=== PATIENT | female | born 1965 | race Two or more races ===

== ENCOUNTER 2016-11-04 15:03 | Emergency (ER) | payer SELFPAY ==
[~2016-11-04] VITALS: Ht 157.5 cm; Wt 90.3 kg
[~2016-11-04 15:03] MED LIST: APIDRA SOL100 UNIT/1 SQ; ASPIRIN81 MG ORAL; ATORVASTATIN CA20 MG ORAL; BENAZEPRIL HCL10 MG ORAL; BENAZEPRIL HCL40 MG PO; CIPROFLOXACIN500 M2 ORAL; CYCLOBENZAPRINE10 MG ORAL; FEOSOL325 MG ORAL; GABAPENTIN300 MG ORAL; GEMFIBROZIL600 MG ORAL; HUMALOG100 UNIT/4 SUBQ; HYDROCHLOROTHIA25 MG ORAL; IBUPROFEN600 M1 PO; IBUPROFEN800 M1 PO; KEFLEX500 MG ORAL; LANTUS SOL100 UNIT/1; LEVOFLOXACIN500 MG ORAL; LIPITOR20 MG ORAL; LISINOPRIL40 MG ORAL; LISINOPRIL5 MG ORAL; MEDROXYPROGESTE10 MG; METOPROLOL SUCC25 MG ORAL; TRAMADOL HCL50 MG ORAL; TRICOR145 MG ORAL; lasix
[2016-11-04 15:20] VITALS: BP 131/63
[2016-11-04] MEDS ORDERED: Fluorescein Strips RIGHT EYE ONE (15:30)
[2016-11-04] MEDS ORDERED: Tetracaine 0.5% Opth Soln RIGHT EYE ONE (15:30)
--- NOTE | 2016-11-04 16:13 | Emergency Room Report ---
History of Present Illness General Chief Complaint: Eye Problems Present Illness HPI 51-year-old female presents emergency department complaining of progressive right-sided eye pain which is now 10 out of 10 in severity since last night. Patient reports photophobia, erythema, increased lacrimation. Patient denies trauma to the eye or appreciable incident where foreign body may have gone into her eye. Patient states she has history of diabetes and sees regional coordinator regularly her last visit was one month ago. Patient states she has a history of intermittent floaters patient denies floaters at this time. Patient denies loss of vision. Patient states she has had conjunctivitis in the past and this feels similar. Patient denies recent upper respiratory illness, rhinorrhea, nasal congestion. Denies CP, Palpitations, LOC, AMS, dizziness, Changes in Vision, Sensation, paresthesias, or a sudden severe headache. Allergies: Coded Allergies: MORPHINE (Verified Allergy, Severe, Hives, 05/04/13) Patient History Past Medical History: see triage record Past Surgical History: none Pertinent Family History: none Last Menstrual Period: 10/24/2016 Now: No : 3 Para: 3 Reviewed Nursing Documentation: PMH: Agreed, PSxH: Agreed Nursing Documentation-PMH Hx Cardiac Problems: Yes - Heart surgery 2002 Hx Hypertension: Yes Hx Pacemaker: No Hx Asthma: No Hx COPD: No Hx Diabetes: Yes Hx Cancer: No Hx Gastrointestinal Problems: No Hx Dialysis: No Hx Neurological Problems: No Hx Cerebrovascular Accident: No Hx Seizures: No Hx Numbness: Yes - left arm Review of Systems All Other Systems: negative except mentioned in HPI Physical Exam Vital Signs Date Time Temp Pulse Resp B/P Pulse Ox O2 Delivery O2 Flow Rate FiO2 11/04/16 15:10 97.9 79 16 131/63 99 Room Air Sp02 EP Interpretation: reviewed, normal General Appearance: no apparent distress, alert, GCS 15, non-toxic Head: normocephalic, atraumatic Eyes: right eye Scleral Injection, right eye fluoroscene uptake - increased uptake see MDM section, bilateral eye EOMI, bilateral eye PERRL, bilateral eye normal inspection, bilateral eye other - TONOPEN Measurements: left eye: 12,16 ,15 Right eye: 16,19,16 ENT: hearing grossly normal, normal pharynx, no angioedema, normal voice Neck: full range of motion, supple/symm/no masses Respiratory: lungs clear, normal breath sounds, speaking full sentences Cardiovascular #1: regular rate, rhythm Musculoskeletal: back normal, gait/station normal, normal range of motion Neurologic: alert, oriented x3, responsive, motor strength/tone normal, sensory intact, speech normal Psychiatric: judgement/insight normal, memory normal, mood/affect normal Skin: normal color, no rash, warm/dry, well hydrated Medical Decision Making PA Attestation Dr. Loomis is my supervising Physician whom patient management has been discussed with. Diagnostic Impression: Primary Impression: Corneal abrasion, right Qualified Codes: S05.01XA - Injury of conjunctiva and corneal abrasion without foreign body, right eye, initial encounter ER Course 51-year-old female presents emergency department complaining of progressive right-sided eye pain which is now 10 out of 10 in severity since last night. Patient reports photophobia, erythema, increased lacrimation. Patient denies trauma to the eye or appreciable incident where foreign body may have gone into her eye. Patient states she has history of diabetes and sees regional coordinator regularly her last visit was one month ago. Patient states she has a history of intermittent floaters patient denies floaters at this time. Patient denies loss of vision. Patient states she has had conjunctivitis in the past and this feels similar. Patient denies recent upper respiratory illness, rhinorrhea, nasal congestion. Denies CP, Palpitations, LOC, AMS, dizziness, Changes in Vision, Sensation, paresthesias, or a sudden severe headache. - Pt denies Contact lens use. Ddx considered but are not limited to: corneal abrasion, acute glaucoma, globe rupture, FB, Corneal Ulcer, conjunctivitis. Iridis Vital signs: are WNL, pt. is afebrile H&PE are most consistent with: conjunctivitis, will r/o abrasion and acute glaucoma. ORDERS: -Tetracaine and Fluorescein Stain of the Right eye: -Increase fluorescein uptake in a horizontal linear fashion in the 12'o clock position of the right eye, there is no involvement of the iris or pupil. Negative Lavon sign. Pt. had positive relief of pain with tetracaine drops. there was negative evidence of Fb, deep ulcer, or rupture. - [place] measurements of the IOP left eye: 12,16,15 Right eye: 16,19,16 ED INTERVENTIONS: none at this time. -d/w pt. importance of follow up within 48hours with ophthalmology. or to return with worsening or new symptoms. DISCHARGE: At this time pt. is stable for d/c to home. Will provide printed patient care instructions, and any necessary prescriptions. Care plan and follow up instructions have been discussed with the patient prior to discharge. . Last Vital Signs Date Time Temp Pulse Resp B/P Pulse Ox O2 Delivery O2 Flow Rate FiO2 11/04/16 15:10 97.9 79 16 131/63 99 Room Air Disposition: HOME, SELF-CARE Condition: Stable Scripts Diclofenac Sodium (Diclofenac Sodium) 5 Ml Drops 1 DROP OP BID for For Pain, #5 ML Prov: Shara Hoffmann 11/04/16 Ofloxacin (OCUFLOX) 5 Ml Drops 3 ML OP BID for 5 Days, #5 ML Prov: Shara Hoffmann 11/04/16 Patient Instructions: Corneal Abrasion, [id number] Additional Instructions: Take medications as directed. Follow up with [facility] within 72 hours Return sooner to ED if new symptoms occur, or current symptoms become worse. - Please note that this Emergency Department Report was dictated using [employer] technician technology software, occasionally this can lead to erroneous entry secondary to interpretation by the dictation equipment. Shara Hoffmann November 04, 2016 16:13
[2016-11-04] MEDS ORDERED: OCUFLOX5 ML OP (16:15)
[2016-11-04] MEDS ORDERED: DICLOFENAC SODIU5 ML OP (16:15)
[2016-11-04 16:40] VITALS: BP 109/71
== END 2016-11-04 16:55 | disposition home or self-care (01) ==
LOC: EMR 15:25
DX: S05.01XA Injury of conjunctiva and corneal abrasion without foreign body, right eye, initial encounter (principal); E11.9 Type 2 diabetes mellitus without complications; I10 Essential (primary) hypertension; X58.XXXA Exposure to other specified factors, initial encounter; Y92.9 Unspecified place or not applicable; Y99.8 Other external cause status
CPT/HCPCS: 99284

== ENCOUNTER 2017-11-21 18:35 | Inpatient (IN) | payer MEDICARE, OTHER ==
[~2017-11-21] VITALS: Ht 157.5 cm; Wt 86.2 kg
[~2017-11-21 18:35] MED LIST changes: +DICLOFENAC SODIU5 ML OP; +OCUFLOX5 ML OP
[2017-11-21] MEDS ORDERED: Ketorolac 30mg Inj IV ONE (19:45)
[2017-11-21] MEDS ORDERED: Isovue-300 100ml vial INJ PRN (19:45)
[2017-11-21 20:20] LABS: EOSINOPHILS % (AUTO) 0.6 % (0.0-3.0); HEMATOCRIT 35.5 % (37.0-47.0); HEMOGLOBIN 10.9 G/DL (12.0-16.0); LYMPHOCYTES % (AUTO) 15.5 % (20.0-45.0); MEAN CORPUSCULAR VOLUME 88 FL (80-99); MONOCYTES % (AUTO) 5.5 % (1.0-10.0); NEUTROPHILS % (AUTO) 77.4 % (45.0-75.0); PLATELET COUNT 303 K/UL (150-450); RED BLOOD COUNT 4.03 M/UL (4.20-5.40); RED CELL DISTRIBUTION WIDTH 15.8 % (11.6-14.8)
[2017-11-21 20:33] LABS: ANION GAP 10 mmol/L (5-15); BLOOD UREA NITROGEN 38 mg/dL (7-18); CALCIUM 9.1 MG/DL (8.5-10.1); CARBON DIOXIDE 27 MMOL/L (21-32); CHLORIDE 98 MMOL/L (98-107); CREATININE 1.5 MG/DL (0.55-1.30); POTASSIUM 4.1 MMOL/L (3.5-5.1); SODIUM 134 MMOL/L (136-145)
[2017-11-21 20:37] LABS: ALANINE AMINOTRANSFERASE 35 U/L (12-78); ALBUMIN 2.8 G/DL (3.4-5.0); ALBUMIN/GLOBULIN RATIO 0.6 (1.0-2.7); ALKALINE PHOSPHATASE 83 U/L (46-116); ASPARTATE AMINO TRANSFERASE 10 U/L (15-37); BILIRUBIN,TOTAL 0.2 MG/DL (0.2-1.0)
[2017-11-21 21:03] VITALS: BP 126/67
--- NOTE | 2017-11-21 22:09 | Emergency Room Report ---
History of Present Illness General Chief Complaint: Abdominal Pain Source: Patient, Medical Record Present Illness HPI This patient complains of abdominal pain. The patient states that initially she was having short episodes of pain over the past week. She states the pain would come and go and then resolve. She states that over the past day the pain has been intolerable and severe. She states it is radiating to her back and around her right side. She states that her abdomen will also fill distended. She did have an episode of diarrhea yesterday. She denies a history of constipation. She denies dysuria or hematuria. She has no other complaints. Allergies: Coded Allergies: MORPHINE (Verified Allergy, Severe, Hives, 05/04/13) Patient History Past Medical History: see triage record, DM, HTN, AL, CAD, CHF Past Surgical History: CABG Social History: Denies: smoking, alcohol use, drug use Last Menstrual Period: 09/18/17 Reviewed Nursing Documentation: PMH: Agreed; PSxH: Agreed Nursing Documentation-PMH Past Medical History: No History, Except For Hx Cardiac Problems: Yes - Heart surgery 2012 Hx Hypertension: Yes Hx Pacemaker: No Hx Asthma: No Hx COPD: No Hx Diabetes: Yes Hx Cancer: No Hx Gastrointestinal Problems: No Hx Dialysis: No Hx Neurological Problems: No Hx Cerebrovascular Accident: No Hx Seizures: No Hx Numbness: Yes - left arm Review of Systems All Other Systems: negative except mentioned in HPI Physical Exam Vital Signs Date Time Temp Pulse Resp B/P (MAP) Pulse Ox O2 Delivery O2 Flow Rate FiO2 11/21/17 19:00 97.8 88 18 130/75 96 Room Air 97.9 Sp02 EP Interpretation: reviewed, normal General Appearance: no apparent distress, alert, GCS 15, non-toxic Head: normocephalic, atraumatic Eyes: bilateral eye normal inspection, bilateral eye PERRL ENT: hearing grossly normal, normal pharynx, no angioedema, normal voice Neck: full range of motion, supple/symm/no masses Respiratory: chest non-tender, lungs clear, normal breath sounds, no respiratory distress, no retraction, no accessory muscle use, speaking full sentences Cardiovascular #1: regular rate, rhythm, no edema Gastrointestinal: normal bowel sounds, soft, non-distended, no guarding, no rebound, tenderness - TTP in the RUQ and epigastrium Rectal: deferred Musculoskeletal: back normal, gait/station normal, normal range of motion, non- tender Neurologic: alert, oriented x3, responsive, motor strength/tone normal, sensory intact, speech normal Psychiatric: judgement/insight normal, memory normal, mood/affect normal, no suicidal/homicidal ideation Skin: normal color, no rash, warm/dry, well hydrated Medical Decision Making Diagnostic Impression: Primary Impression: Pancreatitis ER Course This patient is on a pancreatitis. The patient continued to have pain in her right upper abdomen and across her abdomen and was exquisitely tender and so was concerned that there was another diagnosis. Therefore, I did obtain an ultrasound of the right upper quadrant and a CT of the abdomen and pelvis which showed no acute findings other than urinary distention. The patient is able to urinate normally and is nontender over her suprapubic region. I'm unsure of the significance of this. The patient was admitted for pain control and bowel rest. Laboratory Tests Test 11/21/17 20:03 11/21/17 21:43 White Blood Count 10.0 K/UL (4.8-10.8) Red Blood Count 4.03 M/UL (4.20-5.40) L Hemoglobin 10.9 G/DL (12.0-16.0) L Hematocrit 35.5 % (37.0-47.0) L Mean Corpuscular Volume 88 FL (80-99) Mean Corpuscular Hemoglobin 27.1 PG (27.0-31.0) Mean Corpuscular Hemoglobin Concent 30.8 G/DL (32.0-36.0) L Red Cell Distribution Width 15.8 % (11.6-14.8) H Platelet Count 303 K/UL (150-450) Mean Platelet Volume 8.9 FL (6.5-10.1) Neutrophils (%) (Auto) 77.4 % (45.0-75.0) H Lymphocytes (%) (Auto) 15.5 % (20.0-45.0) L Monocytes (%) (Auto) 5.5 % (1.0-10.0) Eosinophils (%) (Auto) 0.6 % (0.0-3.0) Basophils (%) (Auto) 1.0 % (0.0-2.0) Sodium Level 134 MMOL/L (136-145) L Potassium Level 4.1 MMOL/L (3.5-5.1) Chloride Level 98 MMOL/L (98-107) Carbon Dioxide Level 27 MMOL/L (21-32) Anion Gap 10 mmol/L (5-15) Blood Urea Nitrogen 38 mg/dL (7-18) H Creatinine 1.5 MG/DL (0.55-1.30) H Estimate Glomerular Filtration Rate 36.4 mL/min (>60) Glucose Level 473 MG/DL (74-106) H Calcium Level 9.1 MG/DL (8.5-10.1) Total Bilirubin 0.2 MG/DL (0.2-1.0) Aspartate Amino Transferase (AST) 10 U/L (15-37) L Alanine Aminotransferase (ALT) 35 U/L (12-78) Alkaline Phosphatase 83 U/L (46-116) Troponin I 0.000 ng/mL (0.000-0.056) Total Protein 7.4 G/DL (6.4-8.2) Albumin 2.8 G/DL (3.4-5.0) L Globulin 4.6 g/dL Albumin/Globulin Ratio 0.6 (1.0-2.7) L Lipase 590 U/L (73-393) H Urine Color Pending Urine Appearance Pending Urine pH Pending Urine Specific [place] Pending Urine Protein Pending Urine Glucose (UA) Pending Urine Ketones Pending Urine Occult Blood Pending Urine Nitrite Pending Urine Bilirubin Pending Urine Urobilinogen Pending Urine Leukocyte Esterase Pending CT/MRI/US Diagnostic Results CT/MRI/US Diagnostic Results : Imaging Test Ordered: CT abd/pelvis, US ABD Impression CT abdomen and pelvis. Bladder distention. No acute findings. See official report. Last Vital Signs Date Time Temp Pulse Resp B/P (MAP) Pulse Ox O2 Delivery O2 Flow Rate FiO2 11/21/17 21:03 98.0 18 126/67 96 Room Air 98.0 11/21/17 19:00 88 Disposition: ADMITTED INPATIENT Condition: Stable Referrals: NON PHYSICIAN (PCP) VIVEK FAJARDO D.O. November 21, 2017 22:09
[2017-11-21 22:11] LABS: APPEARANCE,URINE CLEAR; BILIRUBIN, URINE NEGATIVE (NEGATIVE); COLOR,URINE PALE YELLOW; GLUCOSE, URINE (UA) 4+ (NEGATIVE); KETONES,URINE NEGATIVE (NEGATIVE); LEUKOCYTE ESTERASE ,URINE 1+ (NEGATIVE); NITRITE,URINE NEGATIVE (NEGATIVE); PH,URINE 6.5 (4.5-8.0); PROTEIN,URINE NEGATIVE (NEGATIVE); UROBILINOGEN,URINE NORMAL MG/DL (0.0-1.0)
[2017-11-21] MEDS ORDERED: Morphine Sulfate 4mg/ml Inj IVP ONE (22:15)
[2017-11-21] MEDS ORDERED: Mylanta II UD 30ml ORAL PRN (23:15)
[2017-11-21] MEDS ORDERED: Ketorolac 30mg Inj IV PRN (23:15)
[2017-11-21] MEDS ORDERED: Miralax 17gm pkt ORAL PRN (23:15)
[2017-11-21] MEDS ORDERED: Nitroglycerin Subl 0.4mg tab SL PRN (23:15)
[2017-11-22] VITALS: BP 127/63
[2017-11-22 00:15] LABS: CREATINE KINASE 68 U/L (26-308)
[2017-11-22 04:00] VITALS: BP 114/71
[2017-11-22] MEDS: NovoLOG Insulin Flexpen SUBQ SCH ×4 (07:06→21:12)
[2017-11-22 08:00] VITALS: BP 133/73
[2017-11-22 08:25] LABS: BASOPHILS % (AUTO) 0.7 % (0.0-2.0); EOSINOPHILS % (AUTO) 1.3 % (0.0-3.0); HEMATOCRIT 32.3 % (37.0-47.0); HEMOGLOBIN 10.3 G/DL (12.0-16.0); LYMPHOCYTES % (AUTO) 16.5 % (20.0-45.0); MEAN CORPUSCULAR VOLUME 87 FL (80-99); MONOCYTES % (AUTO) 4.6 % (1.0-10.0); NEUTROPHILS % (AUTO) 76.9 % (45.0-75.0); PLATELET COUNT 298 K/UL (150-450); RED BLOOD COUNT 3.71 M/UL (4.20-5.40); RED CELL DISTRIBUTION WIDTH 15.5 % (11.6-14.8); WHITE BLOOD COUNT 8.9 K/UL (4.8-10.8)
[2017-11-22 08:41] LABS: INR 0.9 (0.9-1.1)
[2017-11-22 08:52] LABS: ALANINE AMINOTRANSFERASE 32 U/L (12-78); ALBUMIN 2.9 G/DL (3.4-5.0); ALBUMIN/GLOBULIN RATIO 0.6 (1.0-2.7); ALKALINE PHOSPHATASE 85 U/L (46-116); AMYLASE 52 U/L (25-115); ANION GAP 12 mmol/L (5-15); ASPARTATE AMINO TRANSFERASE 12 U/L (15-37); BILIRUBIN,TOTAL 0.2 MG/DL (0.2-1.0); BLOOD UREA NITROGEN 31 mg/dL (7-18); CALCIUM 9.2 MG/DL (8.5-10.1); CARBON DIOXIDE 22 MMOL/L (21-32); CHLORIDE 102 MMOL/L (98-107); POTASSIUM 3.8 MMOL/L (3.5-5.1); SODIUM 136 MMOL/L (136-145)
[2017-11-22] MEDS: Benazepril 10mg tab ORAL SCH (09:00)
[2017-11-22] MEDS: Aspirin Baby 81mg ORAL SCH (09:00)
[2017-11-22] MEDS: Metoprolol Succinate XL 25mg tab ORAL SCH (09:01)
[2017-11-22] MEDS: Heparin 5000 units/ml inj SUBQ SCH ×2 (09:01→21:13)
[2017-11-22 09:05] LABS: LACTATE DEHYDROGENASE 115 U/L (81-234)
[2017-11-22 09:44] LABS: % IRON SATURATION 11 % (15-50); IRON 47 ug/dL (50-175); TOTAL IRON BINDING CAPACITY 414 ug/dL (250-450)
--- NOTE | 2017-11-22 09:51 | Diagnostic Imaging Report ---
Indication: Abdominal pain Technique: Continuous helical transaxial imaging of the abdomen and pelvis was obtained from the lung bases to the pubic symphysis during intravenous contrast administration. Coronal 2-D reformats were also obtained. Study obtained in a Siemens sensation [address] Automatic Exposure Control was utilized. Total Dose length Product (DLP): 1012.[address] Dose Index Volume (CTDIvol): 17.93 mGy Comparison: None Findings: The liver is enlarged and diffusely low in attenuation. Liver measurement is about 24 cm. Spleen is normal in size. The lung bases are essentially clear. The appendix is normal. Uterus is noted. Bladder is distended but unremarkable otherwise. There is no free fluid or free air. Diverticula demonstrated in the colon. Trace calcium noted within the wall of the aorta. There is no hydronephrosis. No evidence of bowel obstruction. IMPRESSION: Distended urinary bladder. Enlarged fatty liver. Suspect a small left ovarian cyst measuring about 2 cm. Ultrasound correlation may be helpful. Diverticulosis of the colon. No definite diverticulitis. [facility] has communicated the preliminary results to the Emergency Department. Their findings are largely concordant with this report. The CT scanner at [facility] is accredited by the [employer] and the scans are performed using dose optimization techniques as appropriate to a performed exam including Automatic Exposure control.
[2017-11-22 10:13] LABS: CHOLESTEROL 314 MG/DL (< 200); HDL CHOLESTEROL 34 MG/DL (40-60); TRIGLYCERIDES 1344 MG/DL (30-150)
--- NOTE | 2017-11-22 10:34 | Diagnostic Imaging Report ---
Indication:Abdominal pain Technique: Grayscale and duplex Doppler imaging of the abdomen performed. Comparison: None Findings: The liver is echogenic consistent with fatty infiltration. The demonstrated part of the pancreas, aorta and IVC, both kidneys, spleen appear unremarkable. Gallbladder is contracted. There is no biliary ductal dilatation identified. Doppler evaluation of the main portal vein shows patency. There is no ascites. No hydronephrosis seen. Impression: Fatty liver
--- NOTE | 2017-11-22 11:09 | GI Initial Consult Note ---
History of Present Illness General Date patient seen: November 22, 2017 Time patient seen: 12:37 Reason for Hospitalization: Abdominal Pain Referring physician: LAYLA VENCES Reason for Consultation: PANCREATITIS Present Illness HPI This patient complains of abdominal pain. The patient states that initially she was having short episodes of pain over the past week. She states the pain would come and go and then resolve. She states that over the past day the pain has been intolerable and severe. She states it is radiating to her back and around her right side. She states that her abdomen will also fill distended. She did have an episode of diarrhea yesterday. She denies a history of constipation. She denies dysuria or hematuria. She has no other complaints. GI consulted for pancreatitis. Pt seen, awake A&Ox4 NAD with no active s/sx of N/V/D. Has complaint of severe RUQ pain x 1 day. Denies any recent travels. States she had increased her dietary fat intake over the past few weeks. Abdomen is soft, non distended with RUQ tenderness. Denies constipation. Presents today with anemia, elevated lipase levels. CT unremarkable. Utox negative. No history of colonoscopy. Home Meds Active Scripts Diclofenac Sodium (Diclofenac Sodium) 5 Ml Drops, 1 DROP OP BID for For Pain, # 5 ML Prov:Shara Hoffmann P.Bernadine 11/04/16 Ofloxacin (OCUFLOX) 5 Ml Drops, 3 ML OP BID for 5 Days, #5 ML Prov:Shara Hoffmann P.A. 11/04/16 Ciprofloxacin Hcl* (CIPROFLOXACIN HCL*) 500 Mg Tablet, 500 MG ORAL EVERY 12 HOURS, #14 TAB Prov:Beata Beckman NP 04/15/15 Ferrous Sulfate (Feosol) 325 Mg Tablet, 325 MG ORAL BID, #60 TAB Prov:Beata Beckman NP 04/15/15 Fenofibrate (Tricor) 145 Mg Tab, 145 MG ORAL DAILY, #30 TAB Prov:Beata Beckman NP 04/15/15 Benazepril Hcl* (BENAZEPRIL HCL*) 10 Mg Tablet, 20 MG ORAL DAILY, #30 TAB Prov:Beata Beckman NP 04/15/15 Atorvastatin Calcium* (LIPITOR*) 20 Mg Tablet, 20 MG ORAL BEDTIME, #30 TAB Prov:Beata Beckman NP 04/15/15 Ibuprofen (Ibuprofen) 600 Mg Tablet, 600 MG PO TID PRN for For Pain, #30 TAB Prov:CECILLE UPTON M.D. 09/07/14 Ibuprofen (Ibuprofen) 800 Mg Tablet, 800 MG PO TID, #30 TAB Prov:KEITHCARRILLO JACOME P.A. 08/01/14 Cephalexin* (KEFLEX*) 500 Mg Capsule, 500 MG ORAL Q6H, #28 CAP Prov:CARRILLO VELASCO P.A. 08/01/14 Reported Medications Levofloxacin (LEVOFLOXACIN*) 500 Mg Tablet, 500 MG ORAL DAILY for 10 Days, TAB 12/23/15 Gemfibrozil (GEMFIBROZIL*) 600 Mg Tablet, 600 MG ORAL, TAB 0 Refills 12/21/15 Metoprolol Succinate* (METOPROLOL SUCCINATE*) 25 Mg Tab.er.24h, 25 MG ORAL DAILY , TAB 12/21/15 Tramadol Hcl* (ULTRAM*) 50 Mg Tablet, 50 MG ORAL Q6H PRN for For Pain, #30 TAB 0 Refills 12/21/15 Cyclobenzaprine Hcl* (FLEXERIL*) 10 Mg Tablet, 5 MG ORAL TWICE A DAY, TAB 12/21/15 Gabapentin* (GABAPENTIN*) 300 Mg Capsule, 300 MG ORAL THREE TIMES A DAY, CAP 0 Refills 12/21/15 Atorvastatin Calcium* (ATORVASTATIN CALCIUM*) 20 Mg Tablet, 40 MG ORAL DAILY, TAB 12/21/15 Hydrochlorothiazide* (HYDROCHLOROTHIAZIDE*) 25 Mg Tablet, 25 MG ORAL DAILY, TAB 12/21/15 Lisinopril (LISINOPRIL*) 5 Mg Tablet, 10 MG ORAL DAILY, TAB 04/12/15 Aspirin* (ASPIRIN*) 81 Mg Tab.chew, 81 MG ORAL DAILY, TAB 04/12/15 Insulin Lispro (HUMALOG) 100 Unit/1 Ml Cartridge, 0 SUBQ THREE TIMES A DAY, UNITS 0 Refills 08/01/14 Insulin Glulisine (APIDRA SOLOSTAR) 100 Unit/1 Ml Insuln.pen, 10 SQ AC, #15 05/04/13 Insulin Glargine (LANTUS) 100 Unit/1 Ml Insuln.pen, 15 HS, #15 05/04/13 Med list reviewed/reconciled: Yes Allergies: Coded Allergies: MORPHINE (Verified Allergy, Severe, Hives, 05/04/13) Patient History History Provided By: Patient, Medical Record PMH Narrative Past Medical History: see triage record, DM, HTN, MT, CAD, CHF Past Surgical History: CABG Social History: Denies: smoking, alcohol use, drug use Last Menstrual Period: 09/18/17 Reviewed Nursing Documentation: PMH: Agreed; PSxH: Agreed Nursing Documentation-PMH Past Medical History: No History, Except For Hx Cardiac Problems: Yes - Heart surgery 2012 Hx Hypertension: Yes Hx Pacemaker: No Hx Asthma: No Hx COPD: No Hx Diabetes: Yes Hx Cancer: No Hx Gastrointestinal Problems: No Hx Dialysis: No Hx Neurological Problems: No Hx Cerebrovascular Accident: No Hx Seizures: No Hx Numbness: Yes - left arm Social History: Denies: smoking, alcohol use, drug use, other Review of Systems All Other Systems: negative except mentioned in HPI Physical Exam Vital Signs Date Time Temp Pulse Resp B/P (MAP) Pulse Ox O2 Delivery O2 Flow Rate FiO2 11/21/17 19:00 97.8 88 18 130/75 96 Room Air 97.9 Sp02 EP Interpretation: reviewed, normal Labs Laboratory Tests Test 11/21/17 20:03 11/21/17 21:43 11/22/17 07:40 11/22/17 08:00 White Blood Count 10.0 K/UL (4.8-10.8) 8.9 K/UL (4.8-10.8) Red Blood Count 4.03 M/UL (4.20-5.40) L 3.71 M/UL (4.20-5.40) L Hemoglobin 10.9 G/DL (12.0-16.0) L 10.3 G/DL (12.0-16.0) L Hematocrit 35.5 % (37.0-47.0) L 32.3 % (37.0-47.0) L Mean Corpuscular Volume 88 FL (80-99) 87 FL (80-99) Mean Corpuscular Hemoglobin 27.1 PG (27.0-31.0) 27.8 PG (27.0-31.0) Mean Corpuscular Hemoglobin Concent 30.8 G/DL (32.0-36.0) L 31.9 G/DL (32.0-36.0) L Red Cell Distribution Width 15.8 % (11.6-14.8) H 15.5 % (11.6-14.8) H Platelet Count 303 K/UL (150-450) 298 K/UL (150-450) Mean Platelet Volume 8.9 FL (6.5-10.1) 8.8 FL (6.5-10.1) Neutrophils (%) (Auto) 77.4 % (45.0-75.0) H 76.9 % (45.0-75.0) H Lymphocytes (%) (Auto) 15.5 % (20.0-45.0) L 16.5 % (20.0-45.0) L Monocytes (%) (Auto) 5.5 % (1.0-10.0) 4.6 % (1.0-10.0) Eosinophils (%) (Auto) 0.6 % (0.0-3.0) 1.3 % (0.0-3.0) Basophils (%) (Auto) 1.0 % (0.0-2.0) 0.7 % (0.0-2.0) Sodium Level 134 MMOL/L (136-145) L 136 MMOL/L (136-145) Potassium Level 4.1 MMOL/L (3.5-5.1) 3.8 MMOL/L (3.5-5.1) Chloride Level 98 MMOL/L (98-107) 102 MMOL/L (98-107) Carbon Dioxide Level 27 MMOL/L (21-32) 22 MMOL/L (21-32) Anion Gap 10 mmol/L (5-15) 12 mmol/L (5-15) Blood Urea Nitrogen 38 mg/dL (7-18) H 31 mg/dL (7-18) H Creatinine 1.5 MG/DL (0.55-1.30) H 1.0 MG/DL (0.55-1.30) Estimat Glomerular Filtration Rate 36.4 mL/min (>60) 58.0 mL/min (>60) Glucose Level 473 MG/DL (74-106) H 400 MG/DL (74-106) H Uric Acid 11.0 MG/DL (2.6-7.2) H Calcium Level 9.1 MG/DL (8.5-10.1) 9.2 MG/DL (8.5-10.1) Total Bilirubin 0.2 MG/DL (0.2-1.0) 0.2 MG/DL (0.2-1.0) Aspartate Amino Transf (AST/SGOT) 10 U/L (15-37) L 12 U/L (15-37) L Alanine Aminotransferase (ALT/SGPT) 35 U/L (12-78) 32 U/L (12-78) Alkaline Phosphatase 83 U/L (46-116) 85 U/L (46-116) Total Creatine Kinase 68 U/L (26-308) Troponin I 0.000 ng/mL (0.000-0.056) Total Protein 7.4 G/DL (6.4-8.2) 7.5 G/DL (6.4-8.2) Albumin 2.8 G/DL (3.4-5.0) L 2.9 G/DL (3.4-5.0) L Globulin 4.6 g/dL 4.6 g/dL Albumin/Globulin Ratio 0.6 (1.0-2.7) L 0.6 (1.0-2.7) L Lipase 590 U/L (73-393) H 511 U/L (73-393) H Urine Color Pale yellow Urine Appearance Clear Urine pH 6.5 (4.5-8.0) Urine Specific [place] 1.010 (1.005-1.035) Urine Protein Negative (NEGATIVE) Urine Glucose (UA) 4+ (NEGATIVE) H Urine Ketones Negative (NEGATIVE) Urine Occult Blood Negative (NEGATIVE) Urine Nitrite Negative (NEGATIVE) Urine Bilirubin Negative (NEGATIVE) Urine Urobilinogen Normal MG/DL (0.0-1.0) Urine Leukocyte Esterase 1+ (NEGATIVE) H Urine RBC 0-2 /HPF (0 - 2) Urine WBC 0-2 /HPF (0 - 2) Urine Squamous Epithelial Cells Occasional /LPF Urine Bacteria None /HPF (NONE) Erythrocyte Sedimentation Rate 67 MM/HR (0-30) H Reticulocyte Count Pending Prothrombin Time 9.1 SEC (9.30-11.50) L Prothromb Time International Ratio 0.9 (0.9-1.1) Activated Partial Thromboplast Time 24 SEC (23-33) Iron Level 47 ug/dL (50-175) L Total Iron Binding Capacity 414 ug/dL (250-450) Percent Iron Saturation 11 % (15-50) L Unsaturated Iron Binding 367 ug/dL (112-346) H Lactate Dehydrogenase 115 U/L (81-234) Triglycerides Level 1344 MG/DL (30-150) H Cholesterol Level 314 MG/DL (< 200) H LDL Cholesterol 115 mg/dL (<100) H HDL Cholesterol 34 MG/DL (40-60) L Cholesterol/HDL Ratio 9.2 (3.3-4.4) H Carcinoembryonic Antigen Pending Hemoglobin A1c 13.6 % (4.3-6.0) H Amylase Level 52 U/L (25-115) Vitamin B12 Level 549 PG/ML (193-986) Folate 18.5 NG/ML (8.6-58.9) Thyroid Stimulating Hormone (TSH) 1.132 uiU/mL (0.358-3.740) General Appearance: well appearing, no apparent distress, alert, obese Head: normocephalic EENT: PERRL/EOMI, normal ENT inspection Neck: supple Respiratory: normal breath sounds, no respiratory distress Cardiovascular: normal rate Gastrointestinal: normal inspection, non tender, soft, normal bowel sounds, non -distended Rectal: deferred Genitourinary: no CVA tenderness Musculoskeletal: normal inspection, back normal Neurologic: normal inspection, alert, oriented x3, responsive Psychiatric: normal inspection, judgement/insight normal, memory normal Skin: normal inspection, normal color, no rash, warm/dry, palpation normal, well hydrated Lymphatic: normal inspection, no adenopathy Current Medications Current Medications Medications (Trade) Dose Ordered Sig/Shirley Route PRN Reason Start Time Stop Time Status Last Admin Dose Admin Acetaminophen (Tylenol) 650 mg Q4H PRN ORAL fever 11/21/17 23:15 12/21/17 23:14 Al Hydroxide/Mg Hydroxide (Mylanta II) 30 ml Q6H PRN ORAL dyspepsia 11/21/17 23:15 12/21/17 23:14 Aspirin (ASA) 81 mg DAILY ORAL 11/22/17 09:00 12/22/17 08:59 11/22/17 09:00 Atorvastatin Calcium (Lipitor) 40 mg DAILY ORAL 11/22/17 09:00 12/22/17 08:59 11/22/17 09:00 Benazepril HCl (Lotensin) 20 mg DAILY ORAL 11/22/17 09:00 12/22/17 08:59 11/22/17 09:00 Dextrose (Dextrose 50%) STAT PRN IV Hypoglycemia 11/21/17 23:15 12/21/17 23:14 Dextrose (Dextrose 50%) STAT PRN IV Hypoglycemia 11/21/17 23:15 12/21/17 23:14 Diphenhydramine HCl (Benadryl) 25 mg Q6H PRN ORAL Itching/Pruritis 11/21/17 23:15 12/21/17 23:14 Gabapentin (Neurontin) 300 mg THREE TIMES A DAY ORAL 11/22/17 09:00 12/22/17 08:59 11/22/17 09:00 Heparin Sodium (Porcine) (Heparin 5000 units/ml) 5,000 units EVERY 12 HOURS SUBQ 11/22/17 09:00 12/22/17 08:59 11/22/17 09:01 Insulin Aspart (NovoLOG) BEFORE MEALS AND HS SUBQ 11/22/17 06:30 12/22/17 06:29 11/22/17 07:06 Iopamidol (Isovue-300 100ml) 100 ml NOW PRN INJ Radiology Procedure 11/21/17 19:45 Ketorolac Tromethamine (Toradol 30mg) 30 mg Q6H PRN IV moderate pian 4-6 11/21/17 23:15 11/26/17 23:14 Metoprolol Succinate (Toprol XL) 25 mg DAILY ORAL 11/22/17 09:00 12/22/17 08:59 11/22/17 09:01 Nitroglycerin (Ntg) 0.4 mg Q5M X 3 DOSES PRN SL Prn Chest Pain 11/21/17 23:15 12/21/17 23:14 Ondansetron HCl (Zofran) 4 mg Q6H PRN IVP Nausea & Vomiting 11/21/17 23:15 12/21/17 23:14 Polyethylene Glycol (Miralax) 17 gm HSPRN PRN ORAL Constipation 11/21/17 23:15 12/21/17 23:14 Sodium Chloride 1,000 ml @ 50 mls/hr Q20H IV 11/21/17 23:14 12/21/17 23:13 11/22/17 01:58 Temazepam (Restoril) 15 mg HSPRN PRN ORAL Insomnia 11/21/17 23:15 11/28/17 23:14 GI: Plan Problems: (1) Pancreatitis (2) Anemia (3) Iron deficiency anemia Plan pancreatitis 2/2 to hypertriglyceridemia >> start Tricor iron deficiency >> venofer maintain CLD, advance as tolerated pain mgmt trend lipase fu labs healthy lifestyle changes recommend outpatient EGD/colonoscopy screening Discussed with Dr. Turner. Thank you for this patient referral, we will follow. The patient was seen and examined at bedside and all new and available data was reviewed in the patients chart. I agree with the above findings, impression and plan. (Patient seen earlier today. Signature stamp does not reflect patient encounter time.). - [facility] PhoenixKandisAdilson GEMMA November 22, 2017 11:09
[2017-11-22 12:00] VITALS: BP 131/57
[2017-11-22 12:02] LABS: BILIRUBIN, URINE NEGATIVE (NEGATIVE); COLOR,URINE PALE YELLOW; GLUCOSE, URINE (UA) 4+ (NEGATIVE); KETONES,URINE 1+ (NEGATIVE); LEUKOCYTE ESTERASE ,URINE 3+ (NEGATIVE); NITRITE,URINE NEGATIVE (NEGATIVE); PH,URINE 5 (4.5-8.0); PROTEIN,URINE 1+ (NEGATIVE); UROBILINOGEN,URINE NORMAL MG/DL (0.0-1.0)
--- NOTE | 2017-11-22 12:40 | Diagnostic Imaging Report ---
APPROVED REPORT CPT Code: 35144 Present Symptoms Comments: Abdominal pain BILATERAL: Imaging reveals a patent deep venous system bilaterally. There is no evidence of thrombus within the femoral, popliteal or tibial segments. The greater saphenous veins are also within normal limits. Doppler indicates normal spontaneous flow within these segments.
[2017-11-22 12:59] LABS: APPEARANCE,URINE SLIGHTLY CLOUDY
--- NOTE | 2017-11-22 15:05 | History and Physical ---
History of Present Illness General Date patient seen: November 22, 2017 Reason for Hospitalization: Abdominal Pain Present Illness HPI 52 year old female with hx of DM, htn, presented to ER with complains of abdominal pain. The patient states that initially she was having short episodes of pain over the past week. The pain would come and go and then resolve. it is radiating to her back and around her right side. Her abdomen will also fill distended. She did have an episode of diarrhea yesterday. She denies a history of constipation. She denies dysuria or hematuria. She has no other complaints. She was diagnosed to have acute pancreatitis and admitted for further treatment. Allergies: Coded Allergies: MORPHINE (Verified Allergy, Severe, Hives, 05/04/13) Medication History Scheduled Aspirin* (Aspirin*), 81 MG ORAL DAILY, (Reported) Atorvastatin Calcium* (Lipitor*), 20 MG ORAL BEDTIME Atorvastatin Calcium* (Atorvastatin Calcium*), 40 MG ORAL DAILY, (Reported) Benazepril Hcl* (Benazepril Hcl*), 20 MG ORAL DAILY Cephalexin* (Keflex*), 500 MG ORAL Q6H Ciprofloxacin Hcl* (Ciprofloxacin Hcl*), 500 MG ORAL EVERY 12 HOURS Cyclobenzaprine Hcl* (Flexeril*), 5 MG ORAL TWICE A DAY, (Reported) Diclofenac Sodium (Diclofenac Sodium), 1 DROP OP BID Fenofibrate (Tricor), 145 MG ORAL DAILY Ferrous Sulfate (Feosol), 325 MG ORAL BID Gabapentin* (Gabapentin*), 300 MG ORAL THREE TIMES A DAY, (Reported) Hydrochlorothiazide* (Hydrochlorothiazide*), 25 MG ORAL DAILY, (Reported) Ibuprofen (Ibuprofen), 800 MG PO TID Insulin Glargine (Lantus), 15 HS, (Reported) Insulin Glulisine (Apidra Solostar), 10 SQ AC, (Reported) Insulin Lispro (Humalog), 0 SUBQ THREE TIMES A DAY, (Reported) Levofloxacin (Levofloxacin*), 500 MG ORAL DAILY, (Reported) Lisinopril (Lisinopril*), 10 MG ORAL DAILY, (Reported) Metoprolol Succinate* (Metoprolol Succinate*), 25 MG ORAL DAILY, (Reported) Ofloxacin (Ocuflox), 3 ML OP BID Scheduled PRN Ibuprofen (Ibuprofen), 600 MG PO TID PRN for For Pain Tramadol Hcl* (Ultram*), 50 MG ORAL Q6H PRN for For Pain, (Reported) Miscellaneous Medications Gemfibrozil (Gemfibrozil*), 600 MG ORAL, (Reported) Patient History Healthcare decision maker SELF Resuscitation status Full Code Advanced Directive on File No Past Medical/Surgical History Past Medical/Surgical History: (1) Diabetes mellitus (2) Fatty liver Review of Systems All Other Systems: negative except mentioned in HPI Physical Exam General Appearance: WD/WN Lines, tubes and drains: peripheral HEENT: normocephalic Neck: non-tender, normal alignment Respiratory/Chest: chest wall non-tender, lungs clear Breasts: no masses Cardiovascular/Chest: normal rate Abdomen: normal bowel sounds Extremities: normal range of motion Skin Exam: normal pigmentation Last 24 Hour Vital Signs Date Time Temp Pulse Resp B/P (MAP) Pulse Ox O2 Delivery O2 Flow Rate FiO2 11/22/17 12:00 97.8 73 20 131/57 96 97.8 11/22/17 09:01 87 133/73 11/22/17 09:00 133/73 11/22/17 08:00 97.7 87 20 133/73 96 97.7 11/22/17 04:00 98.2 94 20 114/71 96 98.2 11/22/17 04:00 98.2 95 20 114/71 97 98.2 11/22/17 01:00 97.3 84 20 127/63 97 Room Air 97.3 11/22/17 00:00 97.3 84 20 127/63 97 97.3 11/22/17 00:00 97.3 84 20 127/63 97 97.3 11/21/17 22:15 98.0 11/21/17 21:03 98.0 18 126/67 96 Room Air 98.0 11/21/17 20:14 97.8 11/21/17 19:00 97.8 88 18 130/75 96 Room Air 97.9 Intake and Output 11/21/17 11/22/17 19:00 07:00 Intake Total 250 ml Balance 250 ml Intake Oral 0 ml IV Total 250 ml # Voids 1 Laboratory Tests Test 11/21/17 20:03 11/21/17 21:43 11/22/17 07:40 5/24/18 08:00 White Blood Count 10.0 K/UL (4.8-10.8) 8.9 K/UL (4.8-10.8) Red Blood Count 4.03 M/UL (4.20-5.40) L 3.71 M/UL (4.20-5.40) L Hemoglobin 10.9 G/DL (12.0-16.0) L 10.3 G/DL (12.0-16.0) L Hematocrit 35.5 % (37.0-47.0) L 32.3 % (37.0-47.0) L Mean Corpuscular Volume 88 FL (80-99) 87 FL (80-99) Mean Corpuscular Hemoglobin 27.1 PG (27.0-31.0) 27.8 PG (27.0-31.0) Mean Corpuscular Hemoglobin Concent 30.8 G/DL (32.0-36.0) L 31.9 G/DL (32.0-36.0) L Red Cell Distribution Width 15.8 % (11.6-14.8) H 15.5 % (11.6-14.8) H Platelet Count 303 K/UL (150-450) 298 K/UL (150-450) Mean Platelet Volume 8.9 FL (6.5-10.1) 8.8 FL (6.5-10.1) Neutrophils (%) (Auto) 77.4 % (45.0-75.0) H 76.9 % (45.0-75.0) H Lymphocytes (%) (Auto) 15.5 % (20.0-45.0) L 16.5 % (20.0-45.0) L Monocytes (%) (Auto) 5.5 % (1.0-10.0) 4.6 % (1.0-10.0) Eosinophils (%) (Auto) 0.6 % (0.0-3.0) 1.3 % (0.0-3.0) Basophils (%) (Auto) 1.0 % (0.0-2.0) 0.7 % (0.0-2.0) Sodium Level 134 MMOL/L (136-145) L 136 MMOL/L (136-145) Potassium Level 4.1 MMOL/L (3.5-5.1) 3.8 MMOL/L (3.5-5.1) Chloride Level 98 MMOL/L (98-107) 102 MMOL/L (98-107) Carbon Dioxide Level 27 MMOL/L (21-32) 22 MMOL/L (21-32) Anion Gap 10 mmol/L (5-15) 12 mmol/L (5-15) Blood Urea Nitrogen 38 mg/dL (7-18) H 31 mg/dL (7-18) H Creatinine 1.5 MG/DL (0.55-1.30) H 1.0 MG/DL (0.55-1.30) Estimat Glomerular Filtration Rate 36.4 mL/min (>60) 58.0 mL/min (>60) Glucose Level 473 MG/DL (74-106) H 400 MG/DL (74-106) H Uric Acid 11.0 MG/DL (2.6-7.2) H Calcium Level 9.1 MG/DL (8.5-10.1) 9.2 MG/DL (8.5-10.1) Total Bilirubin 0.2 MG/DL (0.2-1.0) 0.2 MG/DL (0.2-1.0) Aspartate Amino Transf (AST/SGOT) 10 U/L (15-37) L 12 U/L (15-37) L Alanine Aminotransferase (ALT/SGPT) 35 U/L (12-78) 32 U/L (12-78) Alkaline Phosphatase 83 U/L (46-116) 85 U/L (46-116) Total Creatine Kinase 68 U/L (26-308) Troponin I 0.000 ng/mL (0.000-0.056) Total Protein 7.4 G/DL (6.4-8.2) 7.5 G/DL (6.4-8.2) Albumin 2.8 G/DL (3.4-5.0) L 2.9 G/DL (3.4-5.0) L Globulin 4.6 g/dL 4.6 g/dL Albumin/Globulin Ratio 0.6 (1.0-2.7) L 0.6 (1.0-2.7) L Lipase 590 U/L (73-393) H 511 U/L (73-393) H Urine Color Pale yellow Pale yellow Urine Appearance Clear Slightly cloudy Urine pH 6.5 (4.5-8.0) 5 (4.5-8.0) Urine Specific [place] 1.010 (1.005-1.035) 1.015 (1.005-1.035) Urine Protein Negative (NEGATIVE) 1+ (NEGATIVE) H Urine Glucose (UA) 4+ (NEGATIVE) H 4+ (NEGATIVE) H Urine Ketones Negative (NEGATIVE) 1+ (NEGATIVE) H Urine Occult Blood Negative (NEGATIVE) 1+ (NEGATIVE) H Urine Nitrite Negative (NEGATIVE) Negative (NEGATIVE) Urine Bilirubin Negative (NEGATIVE) Negative (NEGATIVE) Urine Urobilinogen Normal MG/DL (0.0-1.0) Normal MG/DL (0.0-1.0) Urine Leukocyte Esterase 1+ (NEGATIVE) H 3+ (NEGATIVE) H Urine RBC 0-2 /HPF (0 - 2) 2-4 /HPF (0 - 2) H Urine WBC 0-2 /HPF (0 - 2) 30-40 /HPF (0 - 2) H Urine Squamous Epithelial Cells Occasional /LPF Many /LPF (NONE/OCC) H Urine Bacteria None /HPF (NONE) Few /HPF (NONE) Differential Total Cells Counted 100 Neutrophils % (Manual) 77 % (45-75) H Lymphocytes % (Manual) 16 % (20-45) L Monocytes % (Manual) 5 % (1-10) Eosinophils % (Manual) 1 % (0-3) Basophils % (Manual) 1 % (0-2) Band Neutrophils 0 % (0-8) Platelet Estimate Adequate Platelet Morphology Normal Hypochromasia 1+ Anisocytosis 1+ Erythrocyte Sedimentation Rate 67 MM/HR (0-30) H Reticulocyte Count 1.2 % (0.0-2.0) Prothrombin Time 9.1 SEC (9.30-11.50) L Prothromb Time International Ratio 0.9 (0.9-1.1) Activated Partial Thromboplast Time 24 SEC (23-33) Iron Level 47 ug/dL (50-175) L Total Iron Binding Capacity 414 ug/dL (250-450) Percent Iron Saturation 11 % (15-50) L Unsaturated Iron Binding 367 ug/dL (112-346) H Lactate Dehydrogenase 115 U/L (81-234) Triglycerides Level 1344 MG/DL (30-150) H Cholesterol Level 314 MG/DL (< 200) H LDL Cholesterol 115 mg/dL (<100) H HDL Cholesterol 34 MG/DL (40-60) L Cholesterol/HDL Ratio 9.2 (3.3-4.4) H Carcinoembryonic Antigen Pending Urine Yeast Few /HPF (NONE) H Urine Eosinophils None seen Urine Random Sodium 37 mmol/L (20-110) Urine Potassium Timed 24 mmol/L (12-62) Hemoglobin A1c 13.6 % (4.3-6.0) H Amylase Level 52 U/L (25-115) Vitamin B12 Level 549 PG/ML (193-986) Folate 18.5 NG/ML (8.6-58.9) Thyroid Stimulating Hormone (TSH) 1.132 uiU/mL (0.358-3.740) Urine Opiates Screen Negative (NEGATIVE) Urine Barbiturates Screen Negative (NEGATIVE) Phencyclidine (PCP) Screen Negative (NEGATIVE) Urine Amphetamines Screen Negative (NEGATIVE) Urine Benzodiazepines Screen Negative (NEGATIVE) Urine Cocaine Screen Negative (NEGATIVE) Urine Marijuana (THC) Screen Negative (NEGATIVE) Height (Feet): 5 Height (Inches): 2.00 Weight (Pounds): 190 Medications Current Medications Medications (Trade) Dose Ordered Sig/Shirley Route PRN Reason Start Time Stop Time Status Last Admin Dose Admin Acetaminophen (Tylenol) 650 mg Q4H PRN ORAL fever 11/21/17 23:15 12/21/17 23:14 Al Hydroxide/Mg Hydroxide (Mylanta II) 30 ml Q6H PRN ORAL dyspepsia 11/21/17 23:15 12/21/17 23:14 Aspirin (ASA) 81 mg DAILY ORAL 11/22/17 09:00 12/22/17 08:59 11/22/17 09:00 Atorvastatin Calcium (Lipitor) 40 mg DAILY ORAL 11/22/17 09:00 12/22/17 08:59 11/22/17 09:00 Benazepril HCl (Lotensin) 20 mg DAILY ORAL 11/22/17 09:00 12/22/17 08:59 11/22/17 09:00 Dextrose (Dextrose 50%) STAT PRN IV Hypoglycemia 11/21/17 23:15 12/21/17 23:14 Dextrose (Dextrose 50%) STAT PRN IV Hypoglycemia 11/21/17 23:15 12/21/17 23:14 Diphenhydramine HCl (Benadryl) 25 mg Q6H PRN ORAL Itching/Pruritis 11/21/17 23:15 12/21/17 23:14 Fenofibrate (Tricor) 54 mg DAILY ORAL 11/23/17 09:00 12/23/17 08:59 Fenofibrate (Tricor) 54 mg ONCE ORAL 11/22/17 14:00 11/22/17 15:00 11/22/17 14:11 Gabapentin (Neurontin) 300 mg THREE TIMES A DAY ORAL 11/22/17 09:00 12/22/17 08:59 11/22/17 14:11 Heparin Sodium (Porcine) (Heparin 5000 units/ml) 5,000 units EVERY 12 HOURS SUBQ 11/22/17 09:00 12/22/17 08:59 11/22/17 09:01 Insulin Aspart (NovoLOG) BEFORE MEALS AND HS SUBQ 11/22/17 06:30 12/22/17 06:29 11/22/17 07:06 Iopamidol (Isovue-300 100ml) 100 ml NOW PRN INJ Radiology Procedure 11/21/17 19:45 Ketorolac Tromethamine (Toradol 30mg) 30 mg Q6H PRN IV moderate pian 4-6 11/21/17 23:15 11/26/17 23:14 Metoprolol Succinate (Toprol XL) 25 mg DAILY ORAL 11/22/17 09:00 12/22/17 08:59 11/22/17 09:01 Nitroglycerin (Ntg) 0.4 mg Q5M X 3 DOSES PRN SL Prn Chest Pain 11/21/17 23:15 12/21/17 23:14 Ondansetron HCl (Zofran) 4 mg Q6H PRN IVP Nausea & Vomiting 11/21/17 23:15 12/21/17 23:14 Polyethylene Glycol (Miralax) 17 gm HSPRN PRN ORAL Constipation 11/21/17 23:15 12/21/17 23:14 Sodium Chloride 1,000 ml @ 50 mls/hr Q20H IV 11/21/17 23:14 12/21/17 23:13 11/22/17 01:58 Temazepam (Restoril) 15 mg HSPRN PRN ORAL Insomnia 11/21/17 23:15 11/28/17 23:14 Assessment/Plan Problem List: (1) Pancreatitis ICD Codes: K85.9 - Acute pancreatitis, unspecified SNOMED: 09028057 (2) Anemia ICD Codes: D64.9 - Anemia, unspecified SNOMED: 155029790 (3) Diabetes mellitus ICD Codes: E11.9 - Type 2 diabetes mellitus without complications SNOMED: 32880645 (4) Fatty liver ICD Codes: K76.0 - Fatty (change of) liver, not elsewhere classified SNOMED: 556191467 Assessment/Plan NPO iv fluids check electrolytes check amylase and lipase GI evaluation dvt prophylaxis. Lianne Aguilera MD November 22, 2017 15:04
[2017-11-22 16:00] VITALS: BP 140/73
[2017-11-22 20:00] VITALS: BP 126/76
[2017-11-23] VITALS: BP 142/81
[2017-11-23 04:00] VITALS: BP 110/68
[2017-11-23] MEDS: NovoLOG Insulin Flexpen SUBQ SCH ×2 (06:13→12:56)
[2017-11-23 07:48] LABS: BASOPHILS % (AUTO) 0.7 % (0.0-2.0); EOSINOPHILS % (AUTO) 1.1 % (0.0-3.0); HEMATOCRIT 33.5 % (37.0-47.0); HEMOGLOBIN 10.4 G/DL (12.0-16.0); LYMPHOCYTES % (AUTO) 18.6 % (20.0-45.0); MEAN CORPUSCULAR VOLUME 88 FL (80-99); MONOCYTES % (AUTO) 4.7 % (1.0-10.0); NEUTROPHILS % (AUTO) 74.9 % (45.0-75.0); PLATELET COUNT 288 K/UL (150-450); RED BLOOD COUNT 3.83 M/UL (4.20-5.40); RED CELL DISTRIBUTION WIDTH 15.7 % (11.6-14.8); WHITE BLOOD COUNT 8.4 K/UL (4.8-10.8)
[2017-11-23 08:00] VITALS: BP 106/52
[2017-11-23 08:07] LABS: AMYLASE 41 U/L (25-115); ANION GAP 12 mmol/L (5-15); BLOOD UREA NITROGEN 16 mg/dL (7-18); CALCIUM 8.7 MG/DL (8.5-10.1); CARBON DIOXIDE 22 MMOL/L (21-32); CHLORIDE 101 MMOL/L (98-107); CREATININE 0.8 MG/DL (0.55-1.30); POTASSIUM 3.8 MMOL/L (3.5-5.1); SODIUM 135 MMOL/L (136-145)
[2017-11-23] MEDS: Aspirin Baby 81mg ORAL SCH (09:25)
[2017-11-23] MEDS: Metoprolol Succinate XL 25mg tab ORAL SCH (09:25)
[2017-11-23] MEDS: Benazepril 10mg tab ORAL SCH (09:26)
[2017-11-23] MEDS: Heparin 5000 units/ml inj SUBQ SCH (09:28)
[2017-11-23 12:00] VITALS: BP 103/78
--- NOTE | 2017-11-23 12:13 | GI Progress Note ---
Assessment/Plan Problems: (1) Diabetes mellitus ICD Codes: E11.9 - Type 2 diabetes mellitus without complications SNOMED: 59773957 (2) Iron deficiency anemia ICD Codes: D50.9 - Iron deficiency anemia, unspecified SNOMED: 76847212 (3) Pancreatitis ICD Codes: K85.9 - Acute pancreatitis, unspecified SNOMED: 17726983 (4) Anemia ICD Codes: D64.9 - Anemia, unspecified SNOMED: 824425119 (5) Intractable abdominal pain ICD Codes: R10.9 - Unspecified abdominal pain SNOMED: 57877930, 470286008 (6) Fatty liver ICD Codes: K76.0 - Fatty (change of) liver, not elsewhere classified SNOMED: 524577153 Status: stable Status Narrative Discussed with Dr. Turner. Assessment/Plan pancreatitis 2/2 to hypertriglyceridemia >> start Tricor iron deficiency >> venofer okay for DC per GI standpoint if tolerates diet adv to low fat for lunch pain mgmt trend lipase fu labs healthy lifestyle changes outpatient EGD/colonoscopy screening. The patient was seen and examined at bedside and all new and available data was reviewed in the patients chart. I agree with the above findings, impression and plan. (Patient seen earlier today. Signature stamp does not reflect patient encounter time.). - Emigdio Turner MD Subjective Gastrointestinal/Abdominal: Reports: no symptoms, abdominal pain - improved Objective Last 24 Hour Vital Signs Date Time Temp Pulse Resp B/P (MAP) Pulse Ox O2 Delivery O2 Flow Rate FiO2 11/23/17 09:26 106/52 11/23/17 09:25 74 106/52 11/23/17 08:00 97.1 74 18 106/52 96 Room Air 97.1 11/23/17 04:00 98.2 89 20 110/68 98 98.2 11/23/17 00:00 98.3 94 20 142/81 97 98.3 11/22/17 20:00 98.3 85 20 126/76 98 98.3 11/22/17 16:00 98.2 84 20 140/73 96 98.2 Intake and Output 11/22/17 11/23/17 19:00 07:00 Intake Total 850 ml 750 ml Balance 850 ml 750 ml Intake Oral 800 ml 200 ml IV Total 50 ml 550 ml # Voids 3 1 Laboratory Tests Test 11/23/17 07:00 11/23/17 08:00 White Blood Count 8.4 K/UL (4.8-10.8) Red Blood Count 3.83 M/UL (4.20-5.40) L Hemoglobin 10.4 G/DL (12.0-16.0) L Hematocrit 33.5 % (37.0-47.0) L Mean Corpuscular Volume 88 FL (80-99) Mean Corpuscular Hemoglobin 27.3 PG (27.0-31.0) Mean Corpuscular Hemoglobin Concent 31.2 G/DL (32.0-36.0) L Red Cell Distribution Width 15.7 % (11.6-14.8) H Platelet Count 288 K/UL (150-450) Mean Platelet Volume 8.7 FL (6.5-10.1) Neutrophils (%) (Auto) 74.9 % (45.0-75.0) Lymphocytes (%) (Auto) 18.6 % (20.0-45.0) L Monocytes (%) (Auto) 4.7 % (1.0-10.0) Eosinophils (%) (Auto) 1.1 % (0.0-3.0) Basophils (%) (Auto) 0.7 % (0.0-2.0) Sodium Level 135 MMOL/L (136-145) L Potassium Level 3.8 MMOL/L (3.5-5.1) Chloride Level 101 MMOL/L (98-107) Carbon Dioxide Level 22 MMOL/L (21-32) Anion Gap 12 mmol/L (5-15) Blood Urea Nitrogen 16 mg/dL (7-18) Creatinine 0.8 MG/DL (0.55-1.30) Estimat Glomerular Filtration Rate > 60 mL/min (>60) Glucose Level 353 MG/DL (74-106) H Calcium Level 8.7 MG/DL (8.5-10.1) Amylase Level 41 U/L (25-115) Lipase 312 U/L (73-393) Ferritin 19 NG/ML (8-388) Height (Feet): 5 Height (Inches): 2.00 Weight (Pounds): 190 General Appearance: WD/WN, no apparent distress, alert Cardiovascular: normal rate Respiratory/Chest: normal breath sounds, no respiratory distress Abdominal Exam: normal bowel sounds, non tender, soft Extremities: normal range of motion, non-tender Lavern Dawson NP November 23, 2017 12:13
--- NOTE | 2017-11-23 12:59 | Pulmonology Progress Note ---
Assessment/Plan Problems: (1) Pancreatitis (2) Anemia (3) Diabetes mellitus (4) Fatty liver Assessment/Plan lipase is normal now pain is much less pt wants to go home today sliding scale diabetic diet cholesterol lowering agents symptomatic treatment. Subjective ROS Limited/Unobtainable: No Constitutional: Reports: no symptoms HEENT: Repors: no symptoms Respiratory: Reports: no symptoms Allergies: Coded Allergies: MORPHINE (Verified Allergy, Severe, Hives, 05/04/13) Objective Last 24 Hour Vital Signs Date Time Temp Pulse Resp B/P (MAP) Pulse Ox O2 Delivery O2 Flow Rate FiO2 11/23/17 12:00 98.2 79 18 103/78 98 Room Air 98.2 11/23/17 09:26 106/52 11/23/17 09:25 74 106/52 11/23/17 08:00 97.1 74 18 106/52 96 Room Air 97.1 11/23/17 04:00 98.2 89 20 110/68 98 98.2 11/23/17 00:00 98.3 94 20 142/81 97 98.3 11/22/17 20:00 98.3 85 20 126/76 98 98.3 11/22/17 16:00 98.2 84 20 140/73 96 98.2 Intake and Output 11/22/17 11/23/17 19:00 07:00 Intake Total 850 ml 750 ml Balance 850 ml 750 ml Intake Oral 800 ml 200 ml IV Total 50 ml 550 ml # Voids 3 1 General Appearance: WD/WN HEENT: normocephalic, atraumatic Respiratory/Chest: chest wall non-tender, lungs clear, chest wall tender Cardiovascular: normal peripheral pulses, normal rate Abdomen: normal bowel sounds, soft, non tender Genitourinary: normal external genitalia Extremities: no clubbing 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 Microbiology Date/Time Source Procedure Growth Status 11/22/17 08:00 Urine,Clean Catch Urine Culture - Preliminary Resulted Laboratory Tests 11/23/17 07:00: White Blood Count 8.4, Red Blood Count 3.83L, Hemoglobin 10.4L, Hematocrit 33.5L , Mean Corpuscular Volume 88, Mean Corpuscular Hemoglobin 27.3, Mean Corpuscular Hemoglobin Concent 31.2L, Red Cell Distribution Width 15.7H, Platelet Count 288, Mean Platelet Volume 8.7, Neutrophils (%) (Auto) 74.9, Lymphocytes (%) (Auto) 18.6L, Monocytes (%) (Auto) 4.7, Eosinophils (%) (Auto) 1.1, Basophils (%) (Auto) 0.7, Sodium Level 135L, Potassium Level 3.8, Chloride Level 101, Carbon Dioxide Level 22, Anion Gap 12, Blood Urea Nitrogen 16, Creatinine 0.8, Estimat Glomerular Filtration Rate > 60, Glucose Level 353H, Calcium Level 8.7, Amylase Level 41, Lipase 312 11/23/17 08:00: Ferritin 19 Current Medications Medications (Trade) Dose Ordered Sig/Shirley Route PRN Reason Start Time Stop Time Status Last Admin Dose Admin Acetaminophen (Tylenol) 650 mg Q4H PRN ORAL fever 11/21/17 23:15 12/21/17 23:14 Al Hydroxide/Mg Hydroxide (Mylanta II) 30 ml Q6H PRN ORAL dyspepsia 11/21/17 23:15 12/21/17 23:14 Aspirin (ASA) 81 mg DAILY ORAL 11/22/17 09:00 12/22/17 08:59 11/23/17 09:25 Atorvastatin Calcium (Lipitor) 40 mg DAILY ORAL 11/24/17 09:00 12/22/17 08:59 Benazepril HCl (Lotensin) 20 mg DAILY ORAL 11/22/17 09:00 12/22/17 08:59 11/23/17 09:26 Dextrose (Dextrose 50%) STAT PRN IV Hypoglycemia 11/21/17 23:15 12/21/17 23:14 Dextrose (Dextrose 50%) STAT PRN IV Hypoglycemia 11/21/17 23:15 12/21/17 23:14 Diphenhydramine HCl (Benadryl) 25 mg Q6H PRN ORAL Itching/Pruritis 11/21/17 23:15 12/21/17 23:14 Fenofibrate (Tricor) 54 mg DAILY ORAL 11/23/17 09:00 12/23/17 08:59 11/23/17 09:26 Gabapentin (Neurontin) 300 mg THREE TIMES A DAY ORAL 11/22/17 09:00 12/22/17 08:59 11/23/17 09:25 Heparin Sodium (Porcine) (Heparin 5000 units/ml) 5,000 units EVERY 12 HOURS SUBQ 11/22/17 09:00 12/22/17 08:59 11/23/17 09:28 Insulin Aspart (NovoLOG) BEFORE MEALS AND HS SUBQ 11/22/17 06:30 12/22/17 06:29 11/23/17 06:13 Iopamidol (Isovue-300 100ml) 100 ml NOW PRN INJ Radiology Procedure 11/21/17 19:45 Ketorolac Tromethamine (Toradol 30mg) 30 mg Q6H PRN IV moderate pian 4-6 11/21/17 23:15 11/26/17 23:14 11/23/17 06:12 Metoprolol Succinate (Toprol XL) 25 mg DAILY ORAL 11/22/17 09:00 12/22/17 08:59 11/23/17 09:25 Nitroglycerin (Ntg) 0.4 mg Q5M X 3 DOSES PRN SL Prn Chest Pain 11/21/17 23:15 12/21/17 23:14 Ondansetron HCl (Zofran) 4 mg Q6H PRN IVP Nausea & Vomiting 11/21/17 23:15 12/21/17 23:14 Polyethylene Glycol (Miralax) 17 gm HSPRN PRN ORAL Constipation 11/21/17 23:15 12/21/17 23:14 Sodium Chloride 1,000 ml @ 50 mls/hr Q20H IV 11/21/17 23:14 12/21/17 23:13 11/22/17 01:58 Temazepam (Restoril) 15 mg HSPRN PRN ORAL Insomnia 11/21/17 23:15 11/28/17 23:14 Lianne Aguilera MD November 23, 2017 12:59
--- NOTE | 2017-11-23 22:45 | Cardiology Report ---
APPROVED REPORT EKG Measurement Heart [id number] KS [id number] Normal sinus rhythm Possible Left atrial enlargement Septal infarct, age undetermined T wave abnormality, consider lateral ischemia Abnormal ECG
[2017-11-24] MEDS ORDERED: Atorvastatin 20mg tab ORAL SCH (09:00)
--- NOTE | 2017-11-24 17:30 | Discharge Summary ---
Discharge Summary Discharge Summary _ DATE OF ADMISSION: 11/21/2017 DATE OF DISCHARGE: 2017 REASON FOR ADMISSION: 51 years old female with past medical history significant for myocardial infarction, hypertension, coronary artery disease, status post CABG, diabetes mellitus, presented to emergency department complaining of abdominal pain. Patient initially had short intermittent episodes of abdominal pain over the past week. However the pain over the last day became intolerable and severe, with radiation to back and around the right side. Abdomen felt distended. Patient had episode of diarrhea. Patient denied dysuria or hematuria. Vital signs were stable. No leukocytosis ,hemoglobin 10.9, hematocrit 35.5. Troponin negative. Lipase 590. Stable LFT and electrolytes. CT of the abdomen and pelvis revealed enlarged fatty liver. Diverticulosis of the colon without evidence of diverticulitis. Abdominal ultrasound revealed fatty liver. Patient admitted with diagnosis of pancreatitis for further management CONSULTANTS: [facility]- [facility]: Patient was admitted to medical surgical floor. Patient initially kept nothing by mouth. Patient started on the IV hydration. GI consult was requested. Amylase and lipase were trended. Patient started on the DVT prophylaxis. Lipid panel revealed triglycerides of 1344. Cholesterol 314. LDL 115. HDL 34. Patient started on TriCor in addition to Lipitor. Patient was counseled on low-fat low-cholesterol diabetic diet. Patient was encouraged to be compliant with her medications. GI closely followed. Patient started on clear liquid diet and slowly advanced as tolerated. Antiemetics were on on board as needed. Pain management was addressed, pain was controlled. Patient was able to tolerate diet. According to GI specialist , pancreatitis was secondary to hypertriglyceridemia. Lipase and amylase were trending down ,prior to discharge, lipase 312 and amylase 41 Anemia workup was consistent with anemia of iron deficiency. Hemoglobin and hematocrit remained at the baseline, 10.4/33.5 prior to discharge. Patient had a history of prior blood transfusion and a history of fibroid uterus. Recommended to continue outpatient oral iron supplements, that patient had at home. Recommended outpatient GI procedures and follow up with [facility]. Blood sugar was managed with sliding scale of insulin. Patient will need close monitoring and optimization of anti-glycemic regimen to bring blood sugar and hemoglobin A1c under control. Patient was counseled on healthy lifestyle with strict management of blood pressure and blood sugar . Patient was stable for discharge home. FINAL DIAGNOSES: Pancreatitis Fatty liver Intractable abdominal pain, secondary to pancreatitis- resolved Diabetes mellitus Iron deficiency anemia Hypertriglyceridemia DISCHARGE MEDICATIONS: See Medication Reconciliation list. DISCHARGE INSTRUCTIONS: Patient was discharged home. 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 Patient was counseled on low-fat low-cholesterol diabetic diet. Patient was counseled on compliance with medication regimen and importance of keeping blood pressure and blood sugar under control. I have been assigned to dictate discharge summary for this account. I was not involved in the patient's management.e summary Beata Beckman NP November 24, 2017 17:30
--- NOTE | 2017-11-27 09:00 | Consultation ---
DATE OF CONSULTATION: 11/23/2017 HEMATOLOGY/ONCOLOGY CONSULTATION CONSULTING PHYSICIAN: Cliff Wiggins M.D. REFERRING PHYSICIAN: Lianne Aguilera M.D. REASON FOR CONSULTATION: Evaluation of anemia. IDENTIFYING DATA: Dear Dr. Aguilera, The patient is a pleasant 52-year-old female with past medical history significant for diabetes mellitus, hypertension as well as being on insulin and fatty liver disease complaining of abdominal pain. She initially having short episodes of abdominal pain over the past week resolving, radiating to the arm right side. Abdomen is slightly distended. Noted to have episode of diarrhea. No other complaints noted. Diagnosed with appendicitis . Currently noted to be somewhat anemic. Hematology Service was consulted for evaluation and treatment. PAST MEDICAL HISTORY: As noted above. SURGICAL HISTORY: None noted. MEDICATIONS: Aspirin, benazepril, Keflex, diclofenac, ferrous sulfate, Advair, penicillin, metoprolol, . ALLERGIES: Morphine. REVIEW OF SYSTEMS: CONSTITUTIONAL: No fever, chills, or night sweats. SKIN: No rashes, bumps, or itching. HEENT: No headache, hearing or vision changes. BREASTS: No lumps, pain, or discharge. PULMONARY: No cough, sputum, or shortness of breath. GASTROINTESTINAL: No nausea, vomiting, or diarrhea. GENITOURINARY: No dysuria, frequency, or urgency. MUSCULOSKELETAL: No joint swelling, muscle pain, or trauma. PHYSICAL EXAMINATION: VITAL SIGNS: Reviewed. GENERAL: No distress. LUNGS: Decreased breath sounds. CARDIOVASCULAR: Regular rate. No S3 or S4. ABDOMEN: Soft. EXTREMITIES: No cyanosis, swelling, or edema reported. LABORATORY AND DIAGNOSTIC DATA: WBC 8.4, hemoglobin 10.4, and platelet count 188,000. BUN of 16 and creatinine 0.8. INR 0.9. Imaging reviewed. Duplex of lower extremities reviewed, shows patent DVT system. Abdominal ultrasound reviewed, shows liver echogenic consistent with fatty infiltration. A CAT scan of the abdomen and pelvis reviewed, enlarged fatty liver. ASSESSMENT AND RECOMMENDATIONS: 1. Anemia due to underlying chronic disease. Continue to closely monitor. Anemia workup has been ordered. Reticulocyte count ordered in addition to B12. Pathological review of smear, methylmalonic acid, homocystine level, iron panel as well as ferritin, fibrinogen, folic acid and obtain results. Results are pending at this time. 2. Diabetes mellitus. Continue insulin, titration with blood sugar goal between 80 and 120s. A1c also pending. 3. Hypertension. Systolic blood pressure goal less than 140. 4. Hyperlipidemia. Continue the patient on Lipitor. 5. Inflammatory marker elevation and abnormal labs. Closely monitor for improvement. 6. Hyperglycemia, likely related to underlying diabetes. Continue to closely monitor for improvement. Thank you very much for consultation. Cliff Wiggins M.D. DR: AROLDO JOB#: [id number] CC:
== END 2017-11-23 16:00 | disposition home or self-care (01) | DRG 440 ==
LOC: EMR 19:37 → 4E 22:16 → EDBEDREQ 22:57
DX: K85.90 Acute pancreatitis without necrosis or infection, unspecified (principal); D50.9 Iron deficiency anemia, unspecified; K76.0 Fatty (change of) liver, not elsewhere classified; E11.9 Type 2 diabetes mellitus without complications; I25.2 Old myocardial infarction; E78.1 Pure hyperglyceridemia; Z88.6 Allergy status to analgesic agent
CPT/HCPCS: 36415; 74177; 76700; 80048; 80053; 80061; 80307; 81001; 81003; 82150; 82378; 82550; 82607; 82728; 82746; 82962; 83036; 83540; 83550; 83615; 83690; 84133; 84300; 84443; 84484; 84550; 85007; 85025; 85044; 85060; 85610; 85651; 85730; 87086; 87181; 89050; 93005; 93970; 99285; J1815

== ENCOUNTER 2019-01-28 12:02 | Emergency (ER) | payer MEDICARE, OTHER ==
[~2019-01-28] VITALS: Ht 157.5 cm; Wt 81.6 kg
--- NOTE | 2019-01-28 12:26 | NUR ---
ED Nurse Note: PT WALKED IN TO ER TODAY FROM HOME. AOX4. PT C/O RIGHT LOWER BACK PAIN RADIATING TO RIGHT SHOULDER X 4 DAYS AGO. PT STATES SHE HAD A FALL X 5 DAYS AGO BUT STATES PAIN DIDN'T START UNTIL THE DAY AFTER THE FALL. PT STATES SHE HAS BEEN TAKING IBUPROFEN AT HOME FOR PAIN RELIEF BUT STATES PAIN HAS PERSISTED DESPITE MEDICATION. FULL ROM OF EXTREMITY, MUSCLE STRENGTH 5/5, AND GAIT STEADY. NO OBVIOUS INJURY.
[2019-01-28 12:28] VITALS: BP 118/68
[2019-01-28] MEDS ORDERED: Methocarbamol 750mg tab ORAL ONE (12:30)
[2019-01-28] MEDS ORDERED: Acetaminophen 500mg (ES) tab ORAL ONE (12:30)
--- NOTE | 2019-01-28 13:15 | NUR ---
ED Nurse Note: PT TO XRAY.
--- NOTE | 2019-01-28 13:33 | NUR ---
ED Nurse Note: PT BACK FROM XRAY.
[2019-01-28 13:58] VITALS: BP 115/64
--- NOTE | 2019-01-28 13:58 | NUR ---
ED Nurse Note: PT SITTING PEACEFULLY IN BED IN NAD. AOX4. PRESCRIPTIONS AND DISCHARGE PAPERWORK EXPLAINED TO PT. PT VERBALIZES UNDERSTANDING AND ALL QUESTIONS ANSWERED. PRESCRIPTIONS AND DISCHARGE PAPERWORK GIVEN TO PT AND ID WRISTBAND REMOVED. PT WALKED OUT OF ER WITH STEADY GAIT AND ALL BELONGINGS.
--- NOTE | 2019-01-28 14:02 | Diagnostic Imaging Report ---
Indication: Right-sided chest pain after trauma. Comparison: None Findings: 4 views of the right chest wall was obtained for evaluation of the ribs. Bones are osteopenic. Sternotomy is noted. There is no acute fracture identified. There is no soft tissue swelling demonstrated. The lung is essentially clear. The costophrenic angle is sharp. Other osseous structures visualized are unremarkable. Impression: Negative unilateral rib series
[2019-01-28] MEDS ORDERED: ROBAXIN-750750 MG PO (14:05)
[2019-01-28] MEDS ORDERED: LIDODERM700 M1 TOPIC (14:05)
[2019-01-28] MEDS ORDERED: TYLENOL EXTRA500 MG ORAL (14:05)
--- NOTE | 2019-01-28 14:54 | Emergency Room Report ---
History of Present Illness General Chief Complaint: Back Pain-No Injury Source: Patient, Medical Record Present Illness HPI 53-year-old female presents ED for evaluation. Complaining of right-sided rib pain. Patient states she had a mechanical trip and fall on landing on her right side. Denies hitting her head or LOC. Complaining of pain to the right ribs. Throbbing, 8 out of 10, radiating to the upper back. Denies shortness of breath. No other aggravating relieving factors. Denies any other associated symptoms Allergies: Coded Allergies: MORPHINE (Verified Allergy, Severe, Hives, 05/04/13) Patient History Past Medical History: DM, HTN, [place], CAD Past Surgical History: none Pertinent Family History: none Social History: Denies: smoking, alcohol use, drug use Last Menstrual Period: menopause Now: No Immunizations: UTD Reviewed Nursing Documentation: PMH: Agreed; PSxH: Agreed Nursing Documentation-PMH Past Medical History: No History, Except For Hx Cardiac Problems: Yes - M.I. CAD. PATIENT HAS HEART SURGERY YEAR 2012. Hx Hypertension: Yes Hx Pacemaker: No Hx Asthma: No Hx COPD: No Hx Diabetes: Yes Hx Cancer: No Hx Gastrointestinal Problems: No Hx Dialysis: No Hx Neurological Problems: No Hx Cerebrovascular Accident: No Hx Seizures: No Hx Numbness: Yes - left arm Review of Systems All Other Systems: negative except mentioned in HPI Physical Exam Vital Signs Date Time Temp Pulse Resp B/P (MAP) Pulse Ox O2 Delivery O2 Flow Rate FiO2 01/28/19 12:11 98.4 74 18 114/65 (81) 98 Room Air Sp02 EP Interpretation: reviewed, normal General Appearance: no apparent distress, alert, GCS 15, non-toxic Head: normocephalic Eyes: bilateral eye normal inspection, bilateral eye PERRL ENT: hearing grossly normal, normal pharynx, no angioedema, normal voice Neck: full range of motion, supple, no meningismus, no bony tend, supple/symm/ no masses Respiratory: lungs clear, normal breath sounds, speaking full sentences, other - R reproducible lateral rib tenderness. no creptius or brusig Cardiovascular #1: regular rate, rhythm, no edema Gastrointestinal: normal inspection Rectal: deferred Genitourinary: no CVA tenderness Musculoskeletal: other - paraspinal R thoracic pain Neurologic: alert, oriented x3, responsive, motor strength/tone normal, sensory intact, speech normal Psychiatric: normal inspection Skin: no rash Lymphatic: normal inspection Medical Decision Making Diagnostic Impression: Primary Impression: Rib contusion Qualified Codes: S20.211A - Contusion of right front wall of thorax, initial encounter ER Course Hospital Course 53-year-old female presents ED with right-sided rib pain and upper back pain status post trip and fall Differential diagnoses include: Fracture, dislocation, sprain, contusion Clinical course Patient placed on stretcher. After initial history and physical, I ordered pain medications and R rib series + CXR Xrays read shows no acute fracture/dislocation. no PTX Diagnosis - rib contusion Stable and discharged to home with prescription for Tylenol, robaxin, lidoderm. weight bear as tolerated. Followup with PMD. Return to ED if symptoms recur or worsen Other X-Ray Diagnostic Results Other X-Ray Diagnostic Results : X-Ray ordered: R rib series # of Views/Limited Vs Complete: 3 View Indication: Pain EP Interpretation: Yes Interpretation: no dislocation, no soft tissue swelling, no fractures Impression: No acute disease Electronically Signed by: Electronically signed by Manuel Herrera MD Last Vital Signs Date Time Temp Pulse Resp B/P (MAP) Pulse Ox O2 Delivery O2 Flow Rate FiO2 01/28/19 13:58 98.3 72 16 115/64 97 Room Air Status: improved Disposition: HOME, SELF-CARE Condition: Stable Scripts Lidocaine (Lidoderm) 1 Each Adh..patch 1 PATCH TOPIC DAILY, #7 PATCH 0 Refills Patch(es) may remain in place for up to 12 hours in any 24-hour period. Prov: Manuel Herrera MD 01/28/19 Methocarbamol* (ROBAXIN-750*) 750 Mg Tablet 750 MG PO TID, #21 TAB 0 Refills Prov: Manuel Herrera MD 01/28/19 Acetaminophen* (TYLENOL EXTRA STRENGTH*) 500 Mg Tablet 500 MG ORAL Q8H PRN for Prn Headache/Temp > 101, #30 TAB 0 Refills Prov: Manuel Herrera MD 01/28/19 Referrals: NON PHYSICIAN (PCP) Hortensia Ortiz [facility]. [facility] Patient Instructions: Rib Contusion Manuel Herrera MD Jan 28, 2019 14:54
== END 2019-01-28 13:58 | disposition home or self-care (01) ==
LOC: EMR 12:43
DX: S20.211A Contusion of right front wall of thorax, initial encounter (principal); W01.0XXA Fall on same level from slipping, tripping and stumbling without subsequent striking against object, initial encounter; Y92.9 Unspecified place or not applicable; Z88.6 Allergy status to analgesic agent; I25.2 Old myocardial infarction; I11.9 Hypertensive heart disease without heart failure; E11.9 Type 2 diabetes mellitus without complications; M54.6 Pain in thoracic spine
CPT/HCPCS: 99283